=== PATIENT | male | born 1945 | race Caucasian/White ===

== ENCOUNTER 2021-02-24 11:41 | Inpatient (IN) ==
[2021-02-24] MEDS ORDERED: SODIUM CHLORIDE 0.9% 1000ML 1,000 ML IV SCH (12:30)
--- NOTE | 2021-02-24 12:37 | XRay Report ---
XR chest 1V portable CLINICAL HISTORY: weakness COMPARISON STUDY: No previous studies for comparison. FINDINGS: Moderate elevation of the left hemidiaphragm is noted. Left basilar opacity favors atelecta sis. There is no consolidation or evidence for pulmonary edema. Cardiac size is normal. Mediastinal c ontours are unremarkable. IMPRESSION: 1. No acute cardiopulmonary findings. 2. Moderate elevation of the left hemidiaphragm with left lower lobe airspace opacity suggestive of a telectasis. ACT 112: Negative or not required by law. Electronically signed by: Stevie Moore M.D. 02/24/2021 12:36 PM
[2021-02-24 12:45] LABS: Basophils # (auto) 0.03 K/uL (0-0.2); Basophils % (auto) 0.2 %; Eosinophils # (auto) 0.34 K/uL (0-0.5); Eosinophils % (auto) 2.5 %; Hemoglobin 13.6 g/dL (14.0-18.0); Immature Granulocytes # (auto) 0.05 K/uL (0.00-0.02); Immature Granulocytes % (auto) 0.4 %; Lymphocytes # (auto) 2.24 K/uL (1.2-3.4); Lymphocytes % (auto) 16.1 %; Mean Corpuscular Hemoglobin 31.3 pg (25-34); Mean Corpuscular Hgb Conc 33.2 g/dL (32-36); Mean Corpuscular Volume 94.5 fL (80-100); Mean Platelet Volume 10.2 fL (7.4-10.4); Monocytes # (auto) 0.74 K/uL (0.11-0.59); Monocytes % (auto) 5.3 %; Neutrophils # (auto) 10.47 K/uL (1.4-6.5); Neutrophils % (auto) 75.5 %; Platelet Count 330 K/uL (130-400); RDW Coefficient of Variation 15.2 % (11.5-14.5); RDW Standard Deviation 52.4 fL (36.4-46.3); Red Blood Count 4.34 M/uL (4.7-6.1); White Blood Count 13.87 K/uL (4.8-10.8)
[2021-02-24 12:50] LABS: Prothrombin Time 10.2 Seconds (9.0-12.0)
[2021-02-24 13:01] LABS: BUN Creatinine Ratio 14.4 (10-20); Calcium 9.6 mg/dl (8.5-10.1); Est GFR (African American) 34.7; Est GFR (Non-African American) 29.9; Magnesium 2.3 mg/dl (1.8-2.4); Potassium 4.2 mmol/L (3.5-5.1)
[2021-02-24 13:12] LABS: Albumin Globulin Ratio 0.8 (0.9-2); Bilirubin,Total 0.7 mg/dl (0.2-1); Globulin 3.7 gm/dl (2.5-4.0); Thyroid Stimulating Hormone 2.2 uIu/ml (0.300-4.500); Total Protein 6.7 gm/dl (6.4-8.2)
--- NOTE | 2021-02-24 13:32 | Ultrasound Report ---
US venous doppler UE RT HISTORY: 75 years-old Male Swelling, plaque psorasis, DVT acute pain and swelling of the right upper extremity COMPARISON: None TECHNIQUE: Multiple real-time sonographic images of the right upper extremity deep venous structures were obtained assessing grayscale appearance, color and spectral flow FINDINGS: Normal flow, compressibility, phasicity and augmentation of the right upper extremity deep venous str uctures. IMPRESSION: No sonographic evidence of deep venous thrombosis. ACT 112: Negative or not required by law. The above report was generated using voice recognition software. It may contain grammatical, syntax o r spelling errors. Electronically signed by: Sancho Joseph M.D. 02/24/2021 1:30 PM
[2021-02-24 14:30] LABS: Influenza A virus by PCR Negative (Neg); Influenza B virus by PCR Negative (Neg); RSV by PCR Negative (Neg); SARS CoV2 RNA(COVID-19) InHosp NEGATIVE (Negative)
--- NOTE | 2021-02-24 14:53 | Electrocardiogram Report ---
Test Reason : Blood Pressure : / mmHG Vent. Rate : 077 BPM Atrial Rate : 077 BPM P-R Int : 158 ms QRS Dur : 098 ms QT Int : 434 ms P-R-T Axes : 081 018 033 degrees QTc Int : 491 ms Normal sinus rhythm Prolonged QT Abnormal ECG No previous ECGs available Confirmed by Santino Land ([id number]) on 02/24/2021 2:53:34 PM Referred By: Confirmed By:Santino Land
[2021-02-24 15:02] LABS: Appearance Urine Clear (Clear); Bacteria Urine Automated Negative (Negative); Bilirubin Urine Negative (Negative); Blood Urine Negative (Negative); Color Urine Yellow; Glucose Urine UA Negative (Negative); Ketones Urine Negative (Negative); Leukocyte Esterase Urine 2+ (Negative); Nitrite Urine Negative (Negative); Protein Urine Negative (Negative); RBC Urine Automated 0-4 /hpf (0-4); Specific Gravity Urine 1.015 (1.000-1.030); Urobilinogen Urine Negative (Negative)
--- NOTE | 2021-02-24 15:51 | History & Physical Report ---
Date of Service February 24, 2021 Assessment & Plan (1) COLUMBA (acute kidney injury): COLUMBA: Likely secondary to medications Baseline Cr: 1.5 in Oct 2020 Cr:2.11 Hold ACEI,diuretics Naproxen discontinued Avoid nephro toxic agents Start IV fluids Monitor renal function Check renal ultrasound and urine electrolytes if no improvement Psoriasis Flare Restart clobetasol cream May need systemic therapy Consult dermatology Continue gabapentin, loratadine Leukocytosis Likely due to Psoriasis No obvious source of infection Recent shingles shot Blood, urine cultures obtained CXR showed no acute process COVID screen:Negative Empirically started on doxycycline for possible skin infection RUE Swelling RUE Doppler:No sonographic evidence of deep venous thrombosis. DM Type II: Will hold oral diabetic meds Update A1c Utilize insulin therapy while hospitalized Monitor BGs COPD CXR: No acute cardiopulmonary findings. Moderate elevation of the left hemidiaphragm with left lower lobe airspace opacity suggestive of atelectasis. No signs of exacerbation Continue home inhalers Nebs PRN Hypertension Continue home medications Gout Continue allopurinol Tobacco use disorder Nicotine patch [employer] to quit DVT Px: Heparin SQ Code Status Full Code History of Present Illness Chief Complaint: Rash, RUE Swelling Primary Care Provider: Nicolasa Cohen DO Patient is a 75-year-old male with history of COPD, diabetes mellitus type 2, hyperlipidemia, gout, tobacco use disorder, psoriasis, pulmonary nodule, lumbar spinal stenosis, hypertension and other medical problems presents with history of worsening generalized rash, right upper extremity swelling. Patient was seen at [facility] today and had his toenails clipped and was noted to have right upper extremity swelling and was sent to ED for further evaluation. Patient states that his right upper extremity has been gradually swelling since 1 day duration. He admits to having about his palm accidentally while using microwave about 1 week ago. Also states that he had a shingles shot on February 10 as recommended by his primary care physician, and since then noted that his psoriatic rash started to exacerbate. He reports having burning and itching all over his body from the psoriatic rash. He reports chronic intermittent dry cough and dyspnea on exertion which he attributes to smoking. He uses clobetasol cream for his psoriasis which she ran out of 1 week ago. Denies any history of chest pain, dizziness, wheezing, hemoptysis, fever, chills, headache, change in vision, nausea, vomiting, abdominal pain, diarrhea, dysuria, hematuria, recent change in medications. Allergies Allergy/AdvReac Type Severity Reaction Status Date / Time cefaclor [From Ceclor] Allergy Unknown Unverified 02/24/21 15:07 fluticasone [From Flonase] Allergy Unknown Unverified 02/24/21 15:07 metaxalone [From Skelaxin] Allergy Unknown Unverified 02/24/21 15:07 Home Medications Medication Instructions Recorded Confirmed Type allopurinol 300 mg PO DAILY 02/24/21 02/24/21 History amlodipine 10 mg PO DAILY 02/24/21 02/24/21 History aspirin [Aspirin Low Dose] 81 mg PO DAILY 02/24/21 02/24/21 History atorvastatin 40 mg PO DAILY 02/24/21 02/24/21 History budesonide-formoterol 2 puff INHALATION BID 02/24/21 02/24/21 History cholecalciferol (vitamin D3) 25 mcg PO BID 02/24/21 02/24/21 History clobetasol 1 applic TOPICAL BID 02/24/21 02/24/21 History clonidine HCl 0.3 mg PO BID 02/24/21 02/24/21 History cyanocobalamin (vitamin B-12) 500 mcg PO DAILY 02/24/21 02/24/21 History gabapentin 100 mg PO BID 02/24/21 02/24/21 History hydrochlorothiazide 12.5 mg PO BID 02/24/21 02/24/21 History lisinopril 20 mg PO DAILY 02/24/21 02/24/21 History loratadine 10 mg PO DAILY 02/24/21 02/24/21 History magnesium oxide 420 mg PO DAILY 02/24/21 02/24/21 History metformin 500 mg PO BID 02/24/21 02/24/21 History metoprolol tartrate 50 mg PO TID 02/24/21 02/24/21 History naproxen 250 mg PO BID PRN 02/24/21 02/24/21 History nicotine 1 patch TRANSDERMAL DAILY 02/24/21 02/24/21 History tiotropium bromide [Spiriva 2 puff INHALATION DAILY 02/24/21 02/24/21 History Respimat] Past Med/Surg History Medical History (Updated 02/24/21 @ 16:25 by Tino Terry MD) COLUMBA (acute kidney injury) COPD (chronic obstructive pulmonary disease) Surgical History (Updated 02/24/21 @ 16:37 by Tino Terry MD) H/O colonoscopy with polypectomy Social History Smoking Status: Current every day smoker Preferred Language: Japanese Feels Safe at Home: Yes Review of Systems Review of Systems: All systems reviewed & are unremarkable except as noted in HPI & below Physical Exam Physical Exam: Physical Exam: Vitals signs as noted above General Appearance:Moderately built and nourished, no apparent distress Head: normocephalic, Atraumatic Eyes: normal inspection, EOMI Neck: supple, Trachea midline Respiratory/Chest: Coarse breath sounds, No accessory muscle use Cardiovascular: S1, S2, No murmur Abdomen/GI:Soft, Non tender, Bowel sounds present Extremities/Musculoskelatal:normal inspection, 1+ B/L LE edema, RUE swelling Neurologic/Psych:AAOX3, grossly no focal neurological deficits Skin: Extensive Flaky, erythematous generalized psoriatic rash Results & Data Results & Data ([facility]) Vital Signs (Past 12 Hours) Vital Signs Temp Pulse Resp BP Pulse Ox 02/24/21 15:44 81 17 134/69 96 02/24/21 15:30 82 18 134/69 97 02/24/21 15:00 85 19 121/67 97 02/24/21 14:30 77 18 129/64 93 02/24/21 14:00 82 19 129/70 97 02/24/21 13:43 77 18 132/70 97 02/24/21 12:37 20 95 02/24/21 11:49 36.5 C 84 20 147/64 H 99 02/24/21 11:46 85 26 H 147/66 H Laboratory Results Short CBC 02/24/21 Range/Units 12:31 WBC 13.87 H (4.8-10.8) K/uL Hgb 13.6 L (14.0-18.0) g/dL Hct 41.0 L (42-52) % Plt Count 330 (130-400) K/uL BMP 02/24/21 12:31 Sodium 139 Potassium 4.2 Chloride 107 Carbon Dioxide 24 BUN 30 H Creatinine 2.11 H Glucose 106 H Calcium 9.6 Liver Function 02/24/21 Range/Units 12:31 Total Bilirubin 0.7 (0.2-1) mg/dl AST 15 (15-37) U/L ALT 18 (12-78) U/L Alkaline Phosphatase 110 (45-117) U/L Albumin 3.0 L (3.4-5.0) gm/dl Urine 02/24/21 Range/Units 14:47 Urine Color Yellow Urine Appearance Clear (Clear) Urine pH 7.0 (4.5-7.5) Ur Specific Starke 1.015 (1.000-1.030) Urine Protein Negative (Negative) Urine Glucose (UA) Negative (Negative) Diagnostic Findings CXR: No acute cardiopulmonary findings. Moderate elevation of the left hemidiaphragm with left lower lobe airspace opacity suggestive of atelectasis. ECG Additional Comments: EKG: Normal sinus rhythm, prolonged QTC.
[2021-02-24] MEDS ORDERED: ACETAMINOPHEN 325 MG TAB PO PRN (17:13)
[2021-02-24] MEDS ORDERED: ALBUTEROL 0.083% NEBU SOLN 3 ML VIAL NEB PRN (17:13)
[2021-02-24] MEDS ORDERED: GLUCAGON FOR INJ 1 MG VIAL SQ PRN (17:13)
[2021-02-24] MEDS ORDERED: ONDANSETRON INJ 2 MG/ML 2 ML VIAL IV PRN (17:13)
[2021-02-24] MEDS ORDERED: GLUCOSE 40% GEL 15 GM TUBE PO PRN (17:13)
[2021-02-24] MEDS ORDERED: GLUCOSE 10 TABS/TUBE PO PRN (17:13)
[2021-02-24] MEDS ORDERED: POLYETHYLENE (MIRALAX) 17 GM PACK PO PRN (17:13)
[2021-02-24] MEDS ORDERED: DEXTROSE 50% 50 ML SYRINGE IV PRN (17:13)
[2021-02-24] MEDS ORDERED: CARBOHYDRATES FOR HYPOGLYCEMIA PO PRN (17:13)
[2021-02-24] MEDS: DOXYCYCLINE HYCLATE 100 MG CAP PO SCH (18:31)
[2021-02-24] MEDS: SODIUM CHLORIDE 0.9% 1000ML 1,000 ML IV SCH (18:31)
[2021-02-24] MEDS: NICOTINE 21 MG/24 HR TDSY TD SCH (18:32)
[2021-02-24] MEDS: LORATADINE 10 MG TAB PO SCH (18:32)
[2021-02-24] MEDS: CLOBETASOL~ORDER AWAITING ACTION SCH (18:33)
[2021-02-24] MEDS: INSULIN ASPART 100 UNITS/ML 3 ML PEN SC SCH ×2 (18:33→22:30)
--- NOTE | 2021-02-24 20:21 | Ultrasound Report ---
BILATERAL LOWER EXTREMITY VENOUS DOPPLER HISTORY: Acute pain and swelling of the lower extremities Leg swelling, R/O DVT COMPARISON STUDY: None. FINDINGS: There is normal compressibility, flow, and augmentation within the bilateral lower extremit y deep venous systems. Limited visualization of the calf veins secondary to subcutaneous edema. IMPRESSION: No DVT within the right or left lower extremity. ACT 112: Negative or not required by law. Electronically signed by: Sancho Joseph M.D. 02/24/2021 8:20 PM
--- NOTE | 2021-02-24 21:08 | Emergency Department Note ---
History of Present Illness General Chief complaint: Swelling/Edema to Extremity Time Seen by Provider: 02/24/21 12:10 Source: [facility] and other [facility] Mode of arrival: EMS Limitations: other (Poor historian) History of Present Illness Provider complaint: Psoriasis exacerbation, R arm swelling Onset (ago): day(s) 10 Maximum Pain Intensity: 4 This pt presents to the ED via EMS with c/o diffuse psoriasis exacerbation. Pt [place] he [place] the [place]. They noticed his significant psoriasis exacerbation and RUE edema. He believes the swelling is related to spilling hot tomato soup on his hand several days ago. Pt states he has been out of his clobetasol cream about 10 days and this is when the rash worsened. He also received a shingles vaccine about the same time in the left arm, he's wondering if that may have caused any issue. Pt denies fever, pain, nausea, vomiting, blisters. Home Medications Medication Instructions Recorded Confirmed Type allopurinol 300 mg PO DAILY 02/24/21 02/24/21 History amlodipine 10 mg PO DAILY 02/24/21 02/24/21 History aspirin [Aspirin Low Dose] 81 mg PO DAILY 02/24/21 02/24/21 History atorvastatin 40 mg PO DAILY 02/24/21 02/24/21 History budesonide-formoterol 2 puff INHALATION BID 02/24/21 02/24/21 History cholecalciferol (vitamin D3) 25 mcg PO BID 02/24/21 02/24/21 History clobetasol 1 applic TOPICAL BID 02/24/21 02/24/21 History clonidine HCl 0.3 mg PO BID 02/24/21 02/24/21 History cyanocobalamin (vitamin B-12) 500 mcg PO DAILY 02/24/21 02/24/21 History gabapentin 100 mg PO BID 02/24/21 02/24/21 History hydrochlorothiazide 12.5 mg PO BID 02/24/21 02/24/21 History lisinopril 20 mg PO DAILY 02/24/21 02/24/21 History loratadine 10 mg PO DAILY 02/24/21 02/24/21 History magnesium oxide 420 mg PO DAILY 02/24/21 02/24/21 History metformin 500 mg PO BID 02/24/21 02/24/21 History metoprolol tartrate 50 mg PO TID 02/24/21 02/24/21 History naproxen 250 mg PO BID PRN 02/24/21 02/24/21 History nicotine 1 patch TRANSDERMAL DAILY 02/24/21 02/24/21 History tiotropium bromide [Spiriva 2 puff INHALATION DAILY 02/24/21 02/24/21 History Respimat] Allergies Allergy/AdvReac Type Severity Reaction Status Date / Time cefaclor [From Ceclor] Allergy Unknown Unverified 02/24/21 15:07 fluticasone [From Flonase] Allergy Unknown Unverified 02/24/21 15:07 metaxalone [From Skelaxin] Allergy Unknown Unverified 02/24/21 15:07 Past Med/Surg History Medical History COLUMBA (acute kidney injury) COPD (chronic obstructive pulmonary disease) Surgical History H/O colonoscopy with polypectomy Social History Smoking Status: Current every day smoker Preferred Language: Kyr[place] Gear Cutter Required: No Beliefs That Will Affect Care: None Feels Safe at Home: Yes Assistive Devices: Glasses Review of Systems See HPI for pertinent positives & negatives. and A total of 10 systems reviewed and were otherwise negative Physical Exam Vital Signs Vital Signs - 24 hr 02/24/21 11:46 02/24/21 11:49 02/24/21 12:37 Temperature 36.5 C Temperature Source Oral Pulse Rate 85 84 Pulse Rate from SpO2 Sensor Pulse Rhythm Regular Pulse Strength Normal Respiratory Rate 26 H 20 20 Respiratory Effort / Characteristics Non-Labored Spontaneous Respiratory Depth Normal Respiratory Pattern Regular Blood Pressure 147/66 H 147/64 H Blood Pressure Mean 93 91 Blood Pressure Position Sitting Pulse Oximetry 99 95 Oxygen Delivery Method Room Air Room Air Sepsis Recent Fever Within 48 Hours No Sepsis New/Unexplained Change in Mental Status No Sepsis Action Taken by Nursing No Action Required 02/24/21 13:43 02/24/21 14:00 02/24/21 14:30 Temperature Temperature Source Pulse Rate 77 82 77 Pulse Rate from SpO2 Sensor 77 79 77 Pulse Rhythm Pulse Strength Respiratory Rate 18 19 18 Respiratory Effort / Characteristics Respiratory Depth Respiratory Pattern Blood Pressure 132/70 129/70 129/64 Blood Pressure Mean 90 89 85 Blood Pressure Position Pulse Oximetry 97 97 93 Oxygen Delivery Method Sepsis Recent Fever Within 48 Hours Sepsis New/Unexplained Change in Mental Status Sepsis Action Taken by Nursing 02/24/21 15:00 02/24/21 15:30 02/24/21 15:44 Temperature Temperature Source Pulse Rate 85 82 81 Pulse Rate from SpO2 Sensor 85 82 81 Pulse Rhythm Pulse Strength Respiratory Rate 19 18 17 Respiratory Effort / Characteristics Respiratory Depth Respiratory Pattern Blood Pressure 121/67 134/69 134/69 Blood Pressure Mean 85 90 90 Blood Pressure Position Pulse Oximetry 97 97 96 Oxygen Delivery Method Sepsis Recent Fever Within 48 Hours Sepsis New/Unexplained Change in Mental Status Sepsis Action Taken by Nursing Vital signs reviewed. General: Chronically-ill appearing 75 yo male, in no significant distress. HEENT: No scleral icterus/conjunctival injection, PERRLA, neck supple. Cardiovascular: Regular rate and rhythm, no extra sounds. Pulmonary: Clear to auscultation bilaterally, normal work of breathing. Abdomen: Soft, nontender, nondistended, positive bowel sounds. Musculoskeletal: Atraumatic, 2+ mildly pitting edema to RUE. Neurologic: Patient awake alert and oriented x 3 Skin: Warm, dry. Generalized erythema with large plaques. Diffuse scaling and flaking dry skin from neck to feet, anterior and posterior. Course Administered Medications Allopurinol (Allopurinol 300 Mg Tab) 300 mg PO DAILY [facility] Stop: 03/27/21 08:59 Last Admin: 02/25/21 08:39 Dose: 300 mg Documented by: [id number] Amlodipine Besylate (Amlodipine Besylate 5 Mg Tab) 10 mg PO DAILY [facility] Stop: 03/27/21 08:59 Last Admin: 02/25/21 08:40 Dose: 10 mg Documented by: [id number] Aspirin (Aspirin 81 Mg Ectab) 81 mg PO DAILY [facility] Stop: 03/27/21 08:59 Last Admin: 02/25/21 08:39 Dose: 81 mg Documented by: [id number] Atorvastatin Calcium (Atorvastatin 40 Mg Tab) 40 mg PO DAILY [facility] Stop: 03/27/21 08:59 Last Admin: 02/25/21 08:39 Dose: 40 mg Documented by: [id number] Clonidine HCl (Clonidine Hcl 0.3 Mg Tab) 0.3 mg PO BID [facility] Stop: 03/26/21 20:59 Last Admin: 02/25/21 08:39 Dose: 0.3 mg Documented by: [id number] Admin: 02/24/21 22:46 Dose: 0.3 mg Documented by: [id number] Cyanocobalamin (Cyanocobalamin 500 Mcg Tablet (Vitamin B-12)) 500 mcg PO DAILY [facility] Stop: 03/27/21 08:59 Last Admin: 02/25/21 08:39 Dose: 500 mcg Documented by: [id number] Doxycycline Hyclate (Doxycycline Hyclate 100 Mg Cap) 100 mg PO BID [facility] Stop: 03/03/21 17:59 Last Admin: 02/25/21 08:39 Dose: 100 mg Documented by: [id number] Admin: 02/24/21 18:31 Dose: 100 mg Documented by: [id number] Fluticasone/Vilanterol (Fluticasone/Vilanterol 100/25mcg 14 Puffs/Inhaler) 1 puffs INH DAILY [facility] Stop: 03/27/21 08:59 Last Admin: 02/25/21 08:35 Dose: 1 puffs Documented by: [id number] Gabapentin (Gabapentin 100 Mg Cap) 100 mg PO TID [facility] Stop: 03/26/21 20:59 Last Admin: 02/25/21 08:39 Dose: 100 mg Documented by: [id number] Admin: 02/24/21 22:45 Dose: 100 mg Documented by: [id number] Heparin Sodium (Porcine) (Heparin Sod 5,000 Unit/0.5 Ml Vial) 5,000 units SQ Q8 [facility] Stop: 03/26/21 21:59 Last Admin: 02/25/21 06:03 Dose: 5,000 units Documented by: [id number] Admin: 02/24/21 22:46 Dose: 5,000 units Documented by: [id number] Sodium Chloride (Nss 1000ml) 1,000 mls @ 125 mls/hr IV .Q8H [facility] Stop: 02/25/21 12:29 Last Admin: 02/25/21 03:08 Dose: 125 mls/hr Documented by: [id number] Infusion: 02/25/21 02:31 Dose: 125 mls/hr Documented by: [id number] Admin: 02/24/21 18:31 Dose: 125 mls/hr Documented by: [id number] Insulin Aspart (Insulin Aspart 100 Units/Ml 3 Ml Pen) 0 units SC ACHS [facility] Stop: 03/26/21 17:59 Last Admin: 02/25/21 09:26 Dose: 2 units Documented by: [id number] Cosigned by: [id number] Admin: 02/24/21 22:30 Dose: Not Given Documented by: [id number] Cosigned by: [id number] Admin: 02/24/21 18:33 Dose: 1 units Documented by: [id number] Cosigned by: [id number] Loratadine (Loratadine 10 Mg Tab) 10 mg PO DAILY [facility] Stop: 03/26/21 17:12 Last Admin: 02/25/21 08:39 Dose: 10 mg Documented by: [id number] Admin: 02/24/21 18:32 Dose: 10 mg Documented by: [id number] Magnesium Oxide (Magnesium Oxide 400 Mg Tab) 400 mg PO DAILY [facility] Stop: 03/27/21 08:59 Last Admin: 02/25/21 08:39 Dose: 400 mg Documented by: [id number] Metoprolol Tartrate (Metoprolol Tartrate 50 Mg Tab) 50 mg PO TID [facility] Stop: 03/26/21 20:59 Last Admin: 02/25/21 08:39 Dose: 50 mg Documented by: [id number] Admin: 02/24/21 22:45 Dose: 50 mg Documented by: [id number] Miscellaneous (Clobetasol~Order Awaiting Action) 1 ea N/A QS [facility] Stop: 03/26/21 17:29 Last Admin: 02/25/21 08:41 Dose: Not Given Documented by: [id number] Admin: 02/25/21 00:08 Dose: Not Given Documented by: [id number] Admin: 02/24/21 18:33 Dose: Not Given Documented by: [id number] Miscellaneous (Remove Nicoderm Patch) 1 ea N/A DAILY@0859 [facility] Stop: 03/27/21 08:58 Last Admin: 02/25/21 08:41 Dose: Not Given Documented by: [id number] Nicotine (Nicotine 21 Mg/24 Hr Tdsy) 21 mg TD DAILY [facility] Stop: 03/26/21 17:59 Last Admin: 02/25/21 08:41 Dose: Not Given Documented by: [id number] Admin: 02/24/21 18:32 Dose: Not Given Documented by: [id number] Umeclidinium [place] (Umeclidinium [place] 62.5mcg/Blister 7 Puffs/Inhaler) 1 puffs INH QAM [facility] Stop: 03/27/21 08:59 Last Admin: 02/25/21 08:42 Dose: 1 puffs Documented by: [id number] Vitamin D (Cholecalciferol 1,000 Units 25 Mcg Tab) 1,000 units PO BID [facility] Stop: 03/26/21 20:59 Last Admin: 02/25/21 08:39 Dose: 1,000 units Documented by: [id number] Admin: 02/24/21 22:46 Dose: 1,000 units Documented by: [id number] Discontinued Medications Sodium Chloride (Nss 1000ml) 1,000 mls @ 125 mls/hr IV .Q8H [facility] Stop: 02/24/21 20:29 Last Infusion: 02/24/21 18:31 Dose: 0 mls/hr Documented by: [id number] Admin: 02/24/21 12:41 Dose: 125 mls/hr Documented by: [id number] Medical Decision Making Differential Diagnosis Cellulitis, psoriasis, abscess, MRSA infection, DVT, necrotizing fasciitis, dermatitis, drug eruption, allergic reaction, as well as other pathologies. Medical Records Attestation: I reviewed the patient's medical records. ([facility]-l[facility], heme/onc) Home Medications Current Medication List: was personally reviewed by me Laboratory Data Attestation: I reviewed the patient's lab results. Result diagrams: 02/25/21 06:09 02/25/21 06:09 Lab Results 02/24/21 02/24/21 02/24/21 Range/Units 12:31 12:31 12:31 WBC 13.87 H (4.8-10.8) K/uL RBC 4.34 L (4.7-6.1) M/uL Hgb 13.6 L (14.0-18.0) g/dL Hct 41.0 L (42-52) % MCV 94.5 (80-100) fL MCH 31.3 (25-34) pg MCHC 33.2 (32-36) g/dL RDW Std Deviation 52.4 H (36.4-46.3) fL RDW Coeff of [place]an 15.2 H (11.5-14.5) % Plt Count 330 (130-400) K/uL MPV 10.2 (7.4-10.4) fL Immature Gran % (Auto) 0.4 % Neut % (Auto) 75.5 % Lymph % (Auto) 16.1 % [place] % (Auto) 5.3 % Eos % (Auto) 2.5 % Baso % (Auto) 0.2 % Neut # (Auto) 10.47 H (1.4-6.5) K/uL Lymph # (Auto) 2.24 (1.2-3.4) K/uL [place]erry # (Auto) 0.74 H (0.11-0.59) K/uL Eos # (Auto) 0.34 (0-0.5) K/uL Baso # (Auto) 0.03 (0-0.2) K/uL Immature Gran # (Auto) 0.05 H (0.00-0.02) K/uL PT 10.2 (9.0-12.0) Seconds INR 1.0 (0.9-1.1) Sodium 139 (136-145) mmol/L Potassium 4.2 (3.5-5.1) mmol/L Chloride 107 (98-107) mmol/L Carbon Dioxide 24 (21-32) mmol/L Anion Gap 8.0 (3-11) BUN 30 H (7-18) mg/dl Creatinine 2.11 H (0.6-1.4) mg/dl Est Cr Clr Drug Dosing 32.0 ml/min Est GFR ( Amer) 34.7 Est GFR (Non-Af Amer) 29.9 BUN/Creatinine Ratio 14.4 (10-20) Glucose 106 H (70-99) mg/dl Calcium 9.6 (8.5-10.1) mg/dl Magnesium 2.3 (1.8-2.4) mg/dl Total Bilirubin 0.7 (0.2-1) mg/dl AST 15 (15-37) U/L ALT 18 (12-78) U/L Alkaline Phosphatase 110 (45-117) U/L Total Protein 6.7 (6.4-8.2) gm/dl Albumin 3.0 L (3.4-5.0) gm/dl Globulin 3.7 (2.5-4.0) gm/dl Albumin/Globulin Ratio 0.8 L (0.9-2) TSH 2.200 (0.300-4.500) uIu/ml Urine Color Urine Appearance (Clear) Urine pH (4.5-7.5) Ur Specific [place] (1.000-1.030) Urine Protein (Negative) Urine Glucose (UA) (Negative) Urine Ketones (Negative) Urine Blood (Negative) Urine Nitrite (Negative) Urine Bilirubin (Negative) Urine Urobilinogen (Negative) Ur Leukocyte Esterase (Negative) Urine WBC (Auto) (0-5) /hpf Urine RBC (Auto) (0-4) /hpf U Hyaline Cast (Auto) (0-5) /lpf U Epithel Cells (Auto) (0-5) /lpf Urine Bacteria (Auto) (Negative) 02/24/21 Range/Units 14:47 WBC (4.8-10.8) K/uL RBC (4.7-6.1) M/uL Hgb (14.0-18.0) g/dL Hct (42-52) % MCV (80-100) fL MCH (25-34) pg MCHC (32-36) g/dL RDW Std Deviation (36.4-46.3) fL RDW Coeff of Rowan (11.5-14.5) % Plt Count (130-400) K/uL MPV (7.4-10.4) fL Immature Gran % (Auto) % Neut % (Auto) % Lymph % (Auto) % [place] % (Auto) % Eos % (Auto) % Baso % (Auto) % Neut # (Auto) (1.4-6.5) K/uL Lymph # (Auto) (1.2-3.4) K/uL [place] # (Auto) (0.11-0.59) K/uL Eos # (Auto) (0-0.5) K/uL Baso # (Auto) (0-0.2) K/uL Immature Gran # (Auto) (0.00-0.02) K/uL PT (9.0-12.0) Seconds INR (0.9-1.1) Sodium (136-145) mmol/L Potassium (3.5-5.1) mmol/L Chloride (98-107) mmol/L Carbon Dioxide (21-32) mmol/L Anion Gap (3-11) BUN (7-18) mg/dl Creatinine (0.6-1.4) mg/dl Est Cr Clr Drug Dosing ml/min Est GFR ( Amer) Est GFR (Non-Af Amer) BUN/Creatinine Ratio (10-20) Glucose (70-99) mg/dl Calcium (8.5-10.1) mg/dl Magnesium (1.8-2.4) mg/dl Total Bilirubin (0.2-1) mg/dl AST (15-37) U/L ALT (12-78) U/L Alkaline Phosphatase (45-117) U/L Total Protein (6.4-8.2) gm/dl Albumin (3.4-5.0) gm/dl Globulin (2.5-4.0) gm/dl Albumin/Globulin Ratio (0.9-2) TSH (0.300-4.500) uIu/ml Urine Color Yellow Urine Appearance Clear (Clear) Urine pH 7.0 (4.5-7.5) Ur Specific [place] 1.015 (1.000-1.030) Urine Protein Negative (Negative) Urine Glucose (UA) Negative (Negative) Urine Ketones Negative (Negative) Urine Blood Negative (Negative) Urine Nitrite Negative (Negative) Urine Bilirubin Negative (Negative) Urine Urobilinogen Negative (Negative) Ur Leukocyte Esterase 2+ H (Negative) Urine WBC (Auto) 10-30 H (0-5) /hpf Urine RBC (Auto) 0-4 (0-4) /hpf U Hyaline Cast (Auto) 1-5 (0-5) /lpf U Epithel Cells (Auto) 5-10 H (0-5) /lpf Urine Bacteria (Auto) Negative (Negative) Imaging Data Radiologist's Impression: Venous Doppler Study 02/24/21 12:19 US venous doppler UE RT HISTORY: 75 years-old Male Swelling, plaque psorasis, DVT acute pain and swelling of the right upper extremity COMPARISON: None TECHNIQUE: Multiple real-time sonographic images of the right upper extremity deep venous structures were obtained assessing grayscale appearance, color and spectral flow FINDINGS: Normal flow, compressibility, phasicity and augmentation of the right upper extremity deep venous structures. IMPRESSION: No sonographic evidence of deep venous thrombosis. ACT 112: Negative or not required by law. The above report was generated using voice recognition software. It may contain grammatical, syntax or spelling errors. Electronically signed by: Sancho Joseph M.D. 02/24/2021 1:30 PM Chest X-Ray 02/24/21 12:21 XR chest 1V portable CLINICAL HISTORY: weakness COMPARISON STUDY: No previous studies for comparison. FINDINGS: Moderate elevation of the left hemidiaphragm is noted. Left basilar opacity favors atelectasis. There is no consolidation or evidence for pulmonary edema. Cardiac size is normal. Mediastinal contours are unremarkable. IMPRESSION: 1. No acute cardiopulmonary findings. 2. Moderate elevation of the left hemidiaphragm with left lower lobe airspace opacity suggestive of atelectasis. ACT 112: Negative or not required by law. Electronically signed by: Stevie Moore M.D. 02/24/2021 12:36 PM ECG Data Attestation: I personally reviewed and interpreted this ECG as follows: Indication: + weakness Rate (beats per minute): 77 Rhythm: + normal sinus ECG Intervals/blocks: + Prolonged QT ECG ST segments: + Normal ST segments ECG Findings: no PACs and no PVCs Comparison ECG Date: no prior available Blood Pressure Blood Pressure Findings: Normal blood pressure MDM Narrative This pt was evaluated and appeared to be in no distress. IV access was obtained and lab work was drawn. Pt was placed on the compliance monitor and noted to be in a NSR. EKG reveals no acute ischemia. Lab work revealed a renal insufficiency at 2.11, mild elevated WBC at 13.87. COVID is negative. CXR reveals atelectasis in LLL. [facility], [facility] records indicate pt has not been seen by derm in >10 years. He was seen by heme/onc for unspecified leukocytosis but no-showed for last appt. Pt has an acute on chronic renal insufficiency, need for case management intervention and derm consultation. The hospitalist was consulted for further management. Impression & Plan COLUMBA (acute kidney injury), COPD (chronic obstructive pulmonary disease), Psoriasis, Edema of right upper extremity Discharge Plan Visit Data Chief Complaint: Swelling/Edema to Extremity ED Provider: Lida Cruz Discharge Problem: COLUMBA (acute kidney injury), COPD (chronic obstructive pulmonary disease), Psoriasis, Edema of right upper extremity Patient Disposition: Admitted As Inpatient Discharge Instructions Interventions: ED Discharge Assessment Last Done: 02/24/21 16:51 Discharge Problem: COPD (chronic obstructive pulmonary disease) Qualifiers: COPD type: unspecified COPD Qualified Code(s): J44.9 - Chronic obstructive pulmonary disease, unspecified
[2021-02-24] MEDS: GABAPENTIN 100 MG CAP PO SCH (22:45)
[2021-02-24] MEDS: METOPROLOL TARTRATE 50 MG TAB PO SCH (22:45)
[2021-02-24] MEDS: cloNIDine HCL 0.3 MG TAB PO SCH (22:46)
[2021-02-24] MEDS: HEPARIN SOD 5,000 UNIT/0.5 ML VIAL SQ SCH (22:46)
[2021-02-24] MEDS: CHOLECALCIFEROL 1,000 UNITS 25 MCG TAB PO SCH (22:46)
[2021-02-25] MEDS: CLOBETASOL~ORDER AWAITING ACTION SCH ×3 (00:08→16:08)
[2021-02-25] MEDS: SODIUM CHLORIDE 0.9% 1000ML 1,000 ML IV SCH (03:08)
[2021-02-25] MEDS: HEPARIN SOD 5,000 UNIT/0.5 ML VIAL SQ SCH ×3 (06:03→19:49)
[2021-02-25 06:43] LABS: Basophils # (auto) 0.05 K/uL (0-0.2); Basophils % (auto) 0.5 %; Eosinophils # (auto) 0.62 K/uL (0-0.5); Eosinophils % (auto) 5.8 %; Hematocrit (blood only) 36.3 % (42-52); Hemoglobin 12.2 g/dL (14.0-18.0); Immature Granulocytes # (auto) 0.02 K/uL (0.00-0.02); Immature Granulocytes % (auto) 0.2 %; Lymphocytes # (auto) 2.51 K/uL (1.2-3.4); Lymphocytes % (auto) 23.4 %; Mean Corpuscular Hemoglobin 31.5 pg (25-34); Mean Corpuscular Hgb Conc 33.6 g/dL (32-36); Mean Corpuscular Volume 93.8 fL (80-100); Mean Platelet Volume 10.3 fL (7.4-10.4); Monocytes # (auto) 0.61 K/uL (0.11-0.59); Monocytes % (auto) 5.7 %; Neutrophils # (auto) 6.93 K/uL (1.4-6.5); Neutrophils % (auto) 64.4 %; Platelet Count 301 K/uL (130-400); RDW Coefficient of Variation 15.2 % (11.5-14.5); RDW Standard Deviation 51.7 fL (36.4-46.3); Red Blood Count 3.87 M/uL (4.7-6.1); White Blood Count 10.74 K/uL (4.8-10.8)
[2021-02-25 07:15] LABS: Albumin Level 2.4 gm/dl (3.4-5.0); BUN Creatinine Ratio 14.1 (10-20); Calcium 8.6 mg/dl (8.5-10.1); Creatinine Clr Calc Pharmacy 38.1 ml/min; Est GFR (African American) 42.9; Magnesium 1.9 mg/dl (1.8-2.4); Potassium 4.1 mmol/L (3.5-5.1)
[2021-02-25 07:26] LABS: Albumin Globulin Ratio 0.8 (0.9-2); Bilirubin,Total 0.5 mg/dl (0.2-1); Globulin 2.9 gm/dl (2.5-4.0); Total Protein 5.3 gm/dl (6.4-8.2)
[2021-02-25 07:36] LABS: Estimated Average Glucose 134 mg/dl; Hemoglobin A1C 6.3 % (4.5-5.6)
[2021-02-25] MEDS: FLUTICASONE/VILANTEROL 100/25MCG 14 PUFFS/INHALER INH SCH (08:35)
[2021-02-25] MEDS: MAGNESIUM OXIDE 400 MG TAB PO SCH (08:39)
[2021-02-25] MEDS: DOXYCYCLINE HYCLATE 100 MG CAP PO SCH ×2 (08:39→19:47)
[2021-02-25] MEDS: GABAPENTIN 100 MG CAP PO SCH ×3 (08:39→19:50)
[2021-02-25] MEDS: ASPIRIN 81 MG ECTAB PO SCH (08:39)
[2021-02-25] MEDS: CHOLECALCIFEROL 1,000 UNITS 25 MCG TAB PO SCH ×2 (08:39→19:49)
[2021-02-25] MEDS: CYANOCOBALAMIN 500 MCG TABLET (VITAMIN B-12) PO SCH (08:39)
[2021-02-25] MEDS: allopurinoL 300 MG TAB PO SCH (08:39)
[2021-02-25] MEDS: LORATADINE 10 MG TAB PO SCH (08:39)
[2021-02-25] MEDS: METOPROLOL TARTRATE 50 MG TAB PO SCH ×3 (08:39→19:47)
[2021-02-25] MEDS: cloNIDine HCL 0.3 MG TAB PO SCH ×2 (08:39→19:48)
[2021-02-25] MEDS: ATORVASTATIN 40 MG TAB PO SCH (08:39)
[2021-02-25] MEDS: amLODIPine BESYLATE 5 MG TAB PO SCH (08:40)
[2021-02-25] MEDS: NICOTINE 21 MG/24 HR TDSY TD SCH (08:41)
[2021-02-25] MEDS: UMECLIDINIUM BROMIDE 62.5MCG/BLISTER 7 PUFFS/INHALER INH SCH (08:42)
--- NOTE | 2021-02-25 08:55 | Hospitalist Progress Note ---
Date of Service February 25, 2021 Assessment & Plan (1) COLUMBA (acute kidney injury): COLUMBA: Likely secondary to medications Baseline Cr: 1.5 in Oct 2020 Cr:1.77 Hold ACEI,diuretics Naproxen discontinued Avoid nephro toxic agents Continue IV fluids Monitor renal function Psoriasis Flare Restart clobetasol cream Start Cyclosporine Dermatology and Rheum not available Continue gabapentin, loratadine Leukocytosis Likely due to Psoriasis No obvious source of infection Recent shingles shot Blood, urine cultures obtained CXR showed no acute process COVID screen:Negative Empirically started on doxycycline for possible skin infection RUE Swelling RUE Doppler:No sonographic evidence of deep venous thrombosis. DM Type II: Will hold oral diabetic meds Update A1c Utilize insulin therapy while hospitalized Monitor BGs COPD CXR: No acute cardiopulmonary findings. Moderate elevation of the left hemidiaphragm with left lower lobe airspace opacity suggestive of atelectasis. No signs of exacerbation Continue home inhalers Nebs PRN Hypertension Continue home medications Gout Continue allopurinol Tobacco use disorder Nicotine patch Nurse Reviewer to quit DVT Px: Heparin SQ Code Status Full Code Labs Checked Add cyclosporine, Will Call Rheum ROS-No Headache, No Visual Changes, No Nausea, No Vomiting, No Fever, No Chills, No Neck Pain or Stiffness, No Chest Pain, No Palpitations, No SOB, No WHALEN, No Cough, No Sputum, No Wheezing, No Abdominal Pain, No Diarrhea, No Hematemesis, No Hemoptysis, No Unexpected Weight Loss, No Flank pain, No Melena, No Hematochezia, No Frequency, No Urgency, No Burning, No Hematuria, No Rashes, No Diaphoresis. Appetite is Normal C/O itching Physical Exam Gen-AAO x 3, NAD, Afebrile Head-NCAT, EOMI, PERRLA, Anicteric Sclera, No Posterior Pharyngeal Erythema Neck-Supple, No JVD, No Thyromegaly, No Masses, No LAD, No Bruits Lungs-Clear to Auscultation Bilaterally, No Rales, No Rhonchi, No Wheezing, No Crepitus Chest-No S4, +S1, +S2, No S3, No Murmurs, No Rubs, No Gallops, No Ectopy Abdomen-Soft, Bowel Sounds Present, Non Tender, Non Distended, No Hepatomegaly, No Splenomegaly, No Palpable Masses, No Rebound, No Rigidity, No Guarding Musculoskeletal-Full Range of Motion Bilaterally, No CVAT Extremities-No Cyanosis, No Clubbing, +RUE Edema, Scaling Plaques c Erythema Nuero-Cranial Nerves II-XII grossly intact, Motor WNL, DTRs WNL, Strength WNL, Non Focal Psych-Normal Mood Admission and Anticipated Discharge Date Admission Date: February 24, 2021 Results & Data Results & Data ([facility]) Vital Signs (Past 12 Hours) Vital Signs Temp Pulse Resp BP BP Pulse Ox 02/25/21 08:15 36.9 C 73 18 125/63 96 02/25/21 00:03 36.4 C L 73 18 111/60 96 02/24/21 22:42 82 126/68
[2021-02-25] MEDS ORDERED: hydrOXYzine HCl 25 MG TAB PO PRN (09:17)
[2021-02-25] MEDS: INSULIN ASPART 100 UNITS/ML 3 ML PEN SC SCH ×4 (09:26→21:27)
[2021-02-25] MEDS: TRIAMCINOLONE ACET 0.1% CR 15 GM TUBE EXT SCH ×2 (11:28→19:46)
[2021-02-25] MEDS: predniSONE 20 MG TAB PO SCH (14:26)
[2021-02-26] MEDS: CLOBETASOL~ORDER AWAITING ACTION SCH ×2 (02:23→09:07)
[2021-02-26] MEDS: HEPARIN SOD 5,000 UNIT/0.5 ML VIAL SQ SCH (05:54)
[2021-02-26 06:29] LABS: Hematocrit (blood only) 37.2 % (42-52); Hemoglobin 12.3 g/dL (14.0-18.0); Mean Corpuscular Hemoglobin 31.1 pg (25-34); Mean Corpuscular Hgb Conc 33.1 g/dL (32-36); Mean Corpuscular Volume 93.9 fL (80-100); Mean Platelet Volume 10.7 fL (7.4-10.4); Platelet Count 276 K/uL (130-400); RDW Coefficient of Variation 14.8 % (11.5-14.5); RDW Standard Deviation 51.2 fL (36.4-46.3); Red Blood Count 3.96 M/uL (4.7-6.1); White Blood Count 10.64 K/uL (4.8-10.8)
[2021-02-26 07:00] LABS: BUN Creatinine Ratio 13.5 (10-20); Calcium 8.5 mg/dl (8.5-10.1); Est GFR (African American) 52.4; Est GFR (Non-African American) 45.2; Potassium 4.1 mmol/L (3.5-5.1)
[2021-02-26] MEDS: FLUTICASONE/VILANTEROL 100/25MCG 14 PUFFS/INHALER INH SCH (09:02)
[2021-02-26] MEDS: allopurinoL 300 MG TAB PO SCH (09:05)
[2021-02-26] MEDS: CYANOCOBALAMIN 500 MCG TABLET (VITAMIN B-12) PO SCH (09:06)
[2021-02-26] MEDS: GABAPENTIN 100 MG CAP PO SCH (09:06)
[2021-02-26] MEDS: CHOLECALCIFEROL 1,000 UNITS 25 MCG TAB PO SCH (09:06)
[2021-02-26] MEDS: METOPROLOL TARTRATE 50 MG TAB PO SCH (09:06)
[2021-02-26] MEDS: MAGNESIUM OXIDE 400 MG TAB PO SCH (09:06)
[2021-02-26] MEDS: LORATADINE 10 MG TAB PO SCH (09:06)
[2021-02-26] MEDS: cloNIDine HCL 0.3 MG TAB PO SCH (09:06)
[2021-02-26] MEDS: ASPIRIN 81 MG ECTAB PO SCH (09:06)
[2021-02-26] MEDS: ATORVASTATIN 40 MG TAB PO SCH (09:06)
[2021-02-26] MEDS: DOXYCYCLINE HYCLATE 100 MG CAP PO SCH (09:06)
[2021-02-26] MEDS: predniSONE 20 MG TAB PO SCH (09:06)
[2021-02-26] MEDS: amLODIPine BESYLATE 5 MG TAB PO SCH (09:06)
[2021-02-26] MEDS: NICOTINE 21 MG/24 HR TDSY TD SCH (09:08)
[2021-02-26] MEDS: UMECLIDINIUM BROMIDE 62.5MCG/BLISTER 7 PUFFS/INHALER INH SCH (09:14)
[2021-02-26] MEDS: INSULIN ASPART 100 UNITS/ML 3 ML PEN SC SCH (09:17)
[2021-02-26] MEDS: TRIAMCINOLONE ACET 0.1% CR 15 GM TUBE EXT SCH (09:19)
--- NOTE | 2021-02-26 10:23 | Discharge Summary ---
Date of Service February 26, 2021 Admission HPI Per Admitting Provider Patient is a 75-year-old male with history of COPD, diabetes mellitus type 2, hyperlipidemia, gout, tobacco use disorder, psoriasis, pulmonary nodule, lumbar spinal stenosis, hypertension and other medical problems presents with history of worsening generalized rash, right upper extremity swelling. Patient was seen [facility] today and had his toenails clipped and was noted to have right upper extremity swelling and was sent to ED for further evaluation. Patient states that his right upper extremity has been gradually swelling since 1 day duration. He admits to having about his palm accidentally while using microwave about 1 week ago. Also states that he had a shingles shot on February 10 as recommended by his primary care physician, and since then noted that his psoriatic rash started to exacerbate. He reports having burning and itching all over his body from the psoriatic rash. He reports chronic intermittent dry cough and dyspnea on exertion which he attributes to smoking. He uses clobetasol cream for his psoriasis which she ran out of 1 week ago. Denies any history of chest pain, dizziness, wheezing, hemoptysis, fever, chills, headache, change in vision, nausea, vomiting, abdominal pain, diarrhea, dysuria, hematuria, recent change in medications. Admission Exam Per Admitting Provider Physical Exam: Vitals signs as noted above General Appearance:Moderately built and nourished, no apparent distress Head: normocephalic, Atraumatic Eyes: normal inspection, EOMI Neck: supple, Trachea midline Respiratory/Chest: Coarse breath sounds, No accessory muscle use Cardiovascular: S1, S2, No murmur Abdomen/GI:Soft, Non tender, Bowel sounds present Extremities/Musculoskelatal:normal inspection, 1+ B/L LE edema, RUE swelling Neurologic/Psych:AAOX3, grossly no focal neurological deficits Skin: Extensive Flaky, erythematous generalized psoriatic rash Principal Diagnosis COLUMBA: Psoriasis Flare Leukocytosis RUE Swelling DM Type II: COPD Hypertension Gout Tobacco use disorder Discharge Exam See below Discharge Data Allergies Allergy/AdvReac Type Severity Reaction Status Date / Time cefaclor [From Ceclor] Allergy Unknown Unverified 02/24/21 15:07 fluticasone [From Flonase] Allergy Unknown Unverified 02/24/21 15:07 metaxalone [From Skelaxin] Allergy Unknown Unverified 02/24/21 15:07 Consultations 02/24/21 14:32 ED Decision to Admit Stat Ordered Studies 02/24/21 12:19 US venous doppler UE RT Stat 02/24/21 17:13 US venous doppler LE BI Routine Current Diagnoses Acute kidney failure, unspecified (02/24/21) Allergies cefaclor [From Ceclor] Allergy (Unverified 02/24/21 15:07) Unknown fluticasone [From Flonase] Allergy (Unverified 02/24/21 15:07) Unknown metaxalone [From Skelaxin] Allergy (Unverified 02/24/21 15:07) Unknown Height/Weight/Isolation Height 5 ft 7 in Weight 84.822 kg Chemistry 02/24/21 02/25/21 02/26/21 12:31 06:09 05:46 Sodium 139 143 139 Potassium 4.2 4.1 4.1 Chloride 107 114 H 112 H Carbon Dioxide 24 24 21 Anion Gap 8.0 5.0 6.0 BUN 30 H 25 H 20 H Creatinine 2.11 H 1.77 H D 1.50 H Glucose 106 H 78 114 H Urinalysis 02/24/21 14:47 Urine Color Yellow Urine Appearance Clear Urine pH 7.0 Ur Specific [place] 1.015 Urine Protein Negative Urine Glucose (UA) Negative Urine Ketones Negative Urine Blood Negative Urine Nitrite Negative Urine Bilirubin Negative Microbiology 02/24/21 19:09 Blood Aerobic Blood Culture - Preliminary No growth in Aerobic bottle after 24 hours. 02/24/21 19:09 Blood Anaerobic Blood Culture - Preliminary No growth in Anaerobic bottle after 24 hours. 02/24/21 17:38 Blood Aerobic Blood Culture - Preliminary No growth in Aerobic bottle after 24 hours. 02/24/21 17:38 Blood Anaerobic Blood Culture - Preliminary No growth in Anaerobic bottle after 24 hours. 02/24/21 14:47 Urine,Clean Catch Urine Culture - Preliminary No growth - Less than 1,000 colonies/mL, Final report to follow. Hospital Course (1) COLUMBA (acute kidney injury): [place]UM[place]: Likely secondary to medications Baseline Cr: 1.5 in Oct 2020 Cr:1.5 Hold ACEI,diuretics Naproxen discontinued Avoid nephro toxic agents Continue IV fluids Monitor renal function DC today on PO Steroids Psoriasis Flare Restart clobetasol cream D/W Rheum Continue gabapentin, loratadine Leukocytosis-Resolved Likely due to Psoriasis No obvious source of infection Recent shingles shot Blood, urine cultures obtained CXR showed no acute process COVID screen:Negative Empirically started on doxycycline for possible skin infection RUE Swelling RUE Doppler:No sonographic evidence of deep venous thrombosis. DM Type II: Will hold oral diabetic meds Update A1c Utilize insulin therapy while hospitalized Monitor BGs COPD CXR: No acute cardiopulmonary findings. Moderate elevation of the left hemidiaphragm with left lower lobe airspace opacity suggestive of atelectasis. No signs of exacerbation Continue home inhalers Nebs PRN Hypertension Continue home medications Gout Continue allopurinol Tobacco use disorder Nicotine patch Immunopathologist to quit DVT Px: Heparin SQ D/W Rheum ROS-No Headache, No Visual Changes, No Nausea, No Vomiting, No Fever, No Chills, No Neck Pain or Stiffness, No Chest Pain, No Palpitations, No SOB, No WHALEN, No Cough, No Sputum, No Wheezing, No Abdominal Pain, No Diarrhea, No Hematemesis, No Hemoptysis, No Unexpected Weight Loss, No Flank pain, No Melena, No Hematochezia, No Frequency, No Urgency, No Burning, No Hematuria, No Rashes, No Diaphoresis. Appetite is Normal Feels a lot better today, DC on Cream and Steroids, Derm eval in next 2-3 weeks Physical Exam Gen-AAO x 3, NAD, Afebrile Head-NCAT, EOMI, PERRLA, Anicteric Sclera, No Posterior Pharyngeal Erythema Neck-Supple, No JVD, No Thyromegaly, No Masses, No LAD, No Bruits Lungs-Clear to Auscultation Bilaterally, No Rales, No Rhonchi, No Wheezing, No Crepitus Chest-No S4, +S1, +S2, No S3, No Murmurs, No Rubs, No Gallops, No Ectopy Abdomen-Soft, Bowel Sounds Present, Non Tender, Non Distended, No Hepatomegaly, No Splenomegaly, No Palpable Masses, No Rebound, No Rigidity, No Guarding Musculoskeletal-Full Range of Motion Bilaterally, No CVAT Extremities-No Cyanosis, No Clubbing, +RUE Edema, Scaling Plaques c Erythema Nuero-Cranial Nerves II-XII grossly intact, Motor WNL, DTRs WNL, Strength WNL, Non Focal Psych-Normal Mood Total Time Total Time Spent Total Time Spent (In Minutes): 45 mins Total Time Includes: Examination of the Patient, Discharge Planning, Medication Reconciliation and Communication With Other Providers Discharge Plan Discharge Items Patient Disposition: Home - Self-Care Reason For Visit: PSORIASIS FLARE Discharge Diagnosis: [place]: Psoriasis Flare Leukocytosis RUE Swelling DM Type II: COPD Hypertension Gout Tobacco use disorder Condition on Discharge: Fair Health Concerns: Psoriasis Goals: Disease Management Activity: Resume your previous activity Lifting: Gradually increase as tolerated Bathing: No limitations Exercise/Sports: Gradually increase as tolerated Driving/Machine Use: No limitations Weightbearing: Full weightbearing Non-emergency contact: Primary Care Provider and Specialist Call non-emergency contact if: you have any medication questions Follow-up/Referrals: Nicolasa Cohen DO [Primary Care Provider] - (Needs Derm Eval/Referral JUN) Diet: Heart Healthy Addtl Attending Provider Instructions: Apply Cream Sparingly Pending Studies at Discharge: No Stand-Alone Forms: My [employer] (now [employer]), Smoking Cessation Medications and DC Order Prescriptions: New doxycycline hyclate 100 mg Capsule 100 mg PO BID Qty: 20 RF: 0 hydroxyzine HCl 25 mg Tablet 25 mg PO TID PRN (Reason: itching) Qty: 10 RF: 0 prednisone 10 mg tablet 10 mg PO DAILY Qty: 42 RF: 0 Continued metformin 500 mg Tablet 500 mg PO BID RF: 0 atorvastatin 80 mg Tablet 40 mg PO DAILY RF: 0 magnesium oxide 420 mg Tablet 420 mg PO DAILY RF: 0 clonidine HCl 0.3 mg Tablet 0.3 mg PO BID RF: 0 aspirin [Aspirin Low Dose] 81 mg Tablet,Delayed Release (Dr/Ec) 81 mg PO DAILY RF: 0 cyanocobalamin (vitamin B-12) 500 mcg Tablet 500 mcg PO DAILY RF: 0 amlodipine 10 mg Tablet 10 mg PO DAILY RF: 0 metoprolol tartrate 50 mg Tablet 50 mg PO TID RF: 0 hydrochlorothiazide 12.5 mg Capsule 12.5 mg PO BID RF: 0 allopurinol 300 mg Tablet 300 mg PO DAILY RF: 0 gabapentin 100 mg Capsule 100 mg PO BID RF: 0 loratadine 10 mg Tablet 10 mg PO DAILY RF: 0 cholecalciferol (vitamin D3) 25 mcg (1,000 unit) Capsule 25 mcg PO BID RF: 0 budesonide-formoterol 160-4.5 mcg/actuation Hfa Aerosol Inhaler 2 puff INHALATION BID RF: 0 nicotine 21 mg/24 hr Patch 24 Hour 1 patch TRANSDERMAL DAILY RF: 0 lisinopril 20 mg PO DAILY RF: 0 Spiriva Respimat 1.25 mcg/actuation Mist 2 puff INHALATION DAILY RF: 0 clobetasol 0.05 % Cream 1 applic TOPICAL BID Qty: 30 RF: 0 Discontinued naproxen 250 mg Tablet 250 mg PO BID PRN (Reason: Pain) RF: 0 Discharge Orders: Discharge Order (Routine); Ordered 02/26/21 Ordered By: Jose Oro/Other Patient Handouts: High Blood Sugar (Hyperglycemia), Hypoglycemia (Low Blood Sugar), Managing Type 2 Diabetes, Managing Diabetes: The A1C Test Admission Data Admit Date/Time: 02/24/21 15:59 Attending Provider: Jose Mehta Admit Provider: Tino Terry Primary Care Provider: Nicolasa Cohen Other Providers: Tino Terry ; [facility]
--- NOTE | 2021-03-04 14:24 | Coding Query ---
CODING QUERY To promote full compliance with coding requirements relating to patient care, provider participation is requested in all cases of remote medical coder uncertainty. Please assist us with the question(s) below: Coding Question(s): There is documentation in the record and on Discharge Summary of, "CXR: No acute cardiopulmonary findings. Moderate elevation of the left hemidiaphragm with left lower lobe airspace opacity suggestive of atelectasis". Please specify below, in your clinical opinion, regarding the atelectasis. ( ) Atelectasis was treated and/or monitored during this admission ( x ) Atelectasis was not treated and/or monitored during this admission - it is just a finding noted on chest x-ray ( ) Other: Please Specify Physician's Response(s): Thank you Yolanda Mendoza Principal Diagnosis: "that condition established after study, to be chiefly responsible for occasioning the admission of the patient to the hospital for care." Co-Existing Principal Diagnosis: "when two or more diagnoses equally meet the criteria for principal diagnosis as determined by the circumstances of admission, diagnostic work up, and/or therapy provided, and the Alphabetic Index, Tabular List, or another coding guideline does not provide sequencing direction, any one of the diagnoses may be sequenced first." "When the physician has documented what appears to be a current diagnosis in the body of the record, but has not included the diagnosis in the final diagnostic statement, the physician should be asked whether the diagnosis should be added." (Source Coding Clinic 2 QTR90. p3-4) RONNIE
== END 2021-02-26 12:13 | disposition home or self-care (01) | DRG 684 ==
LOC: ED 11:41 → SUATTDRO 15:59 → 3W 15:59